=== PATIENT | male | born 1975 | race Two or more races ===

== ENCOUNTER 2024-05-12 06:26 | Inpatient (IN) | payer OTHER ==
[~2024-05-12] VITALS: Ht 185.4 cm; Wt 81.0 kg
[2024-05-12 07:40] LABS: Basophils # (auto) 0.1 10 ^3/uL (0-0.2); Eosinophils # (auto) 0.1 10 ^3/uL (0-0.8); Eosinophils % (auto) 2.1 % (0.0-7.0); Hematocrit 25.4 % (41.0-53.0); Hemoglobin 8.5 g/dL (13.5-17.5); Lymphocytes # (auto) 1.2 10 ^3/uL (0.4-5.4); Lymphocytes % (auto) 18.9 % (10.0-50.0); Mean Corpuscular Hemoglobin 32.4 pg (28.0-32.0); Mean Corpuscular Hgb Conc. 33.4 g/dL (32.0-36.0); Mean Corpuscular Volume 96.9 fL (80.0-100.0); Monocytes # (auto) 0.5 10 ^3/uL (0-1.3); Monocytes % (auto) 7.2 % (0.0-12.0); Neutrophils # (auto) 4.6 10 ^3/uL (1.6-8.6); Neutrophils % (auto) 70.8 % (37.0-80.0); Red Blood Cells 2.62 10^6/uL (4.5-5.90); Red Cell Distribution Width 12.8 % (11.8-14.3); White Blood Cell 6.5 10^3/uL (4.4-10.8)
[2024-05-12 07:45] VITALS: PULSE 64; RESP 12; O2SAT 100
[2024-05-12 08:04] LABS: Alanine Aminotransferase 10 U/L (7-40); Albumin 4.4 g/dL (3.2-4.8); Alkaline Phosphatase 51 U/L (46-116); Anion Gap 16 (5-15); Aspartate Aminotransferase < 8 U/L (13-40); Calcium 8.7 mg/dL (8.5-10.1); Carbon Dioxide 15 mmol/L (20-30); Chloride 108 mmol/L (98-107); Glucose 109 mg/dL (74-106); Potassium 3.5 mmol/L (3.5-5.1); Sodium 139 mmol/L (136-145)
[2024-05-12 08:05] LABS: Bilirubin, Total 0.3 mg/dL (0.2-1.0); Total Protein 6.9 g/dL (5.7-8.2)
[2024-05-12 08:12] LABS: BUN/Creatinine Ratio 13.4 (10.0-20.0)
[2024-05-12 08:15] LABS: Blood Urea Nitrogen 160 mg/dL (9-23)
[2024-05-12 08:38] LABS: Lipase 140 U/L (12-53)
[2024-05-12] MEDS: SODIUM CHLORIDE 0.9% 1,000 ML IV ONE ×3 (09:00→10:45)
[2024-05-12 09:44] LABS: Magnesium 1.9 mg/dL (1.6-2.6)
[2024-05-12 09:46] LABS: Phosphorus 9.9 mg/dL (2.4-5.1)
[2024-05-12] MEDS ORDERED: NITROGLYCERIN 0.4 MG SL TAB SL PRN (10:00)
[2024-05-12] MEDS ORDERED: MORPHINE SULFATE INJ 2 MG/ml SYRG IV PRN (10:00)
[2024-05-12 10:19] LABS: INR 1.05 (0.9-1.15); Prothrombin Time 11.1 sec (9.3-11.8)
[2024-05-12] MEDS: SODIUM BICARB 50mEq/50ml Vial 50 ML in SOD CHL 0.45% 1,000 ML IV SCH (10:45)
[2024-05-12 11:38] LABS: Urine Bacteria FEW /hpf (None Seen); Urine Blood Negative /uL (Negative); Urine Clarity Clear (Clear); Urine Color Colorless (Yellow); Urine Protein, UAD Negative (Negative); Urine Specific Gravity 1.008 (1.001-1.035); Urine Urobilinogen Normal (Negative); Urine WBC 31 /hpf (0 - 3)
[2024-05-12 11:39] LABS: Protein, Urine 12.4 mg/dL (0.0-11.9)
[2024-05-12 11:42] LABS: Creatinine, Urine 38.8 mg/dL (30.0-125.0)
[2024-05-12 13:53] LABS: COVID19 ANTIGEN SOFIA FIA NEGATIVE (NEGATIVE); Rapid Influenza A Negative (Negative); Rapid Influenza B Negative (Negative)
[2024-05-12 16:55] VITALS: BP 119/73; PULSE 64; RESP 17; TEMP 97.9; O2SAT 100
[2024-05-12 17:27] VITALS: BP 121/74; PULSE 67; RESP 17; TEMP 97.9; O2SAT 99
[2024-05-12] MEDS: cefTRIAXone 1GM/50ML D5W 50 ML IV SCH (18:43)
[2024-05-12 20:00] VITALS: PULSE 70; RESP 17; O2SAT 97
[2024-05-12 21:00] VITALS: BP 115/67; PULSE 70; RESP 17; TEMP 97.7; O2SAT 97
[2024-05-13] VITALS (8 sets, daily range): BP systolic 104–143; BP diastolic 53–71; PULSE 58–75; RESP 17–19; TEMP 97.2–98.2; O2SAT 96–100
[2024-05-13 06:56] LABS: Anion Gap 15 (5-15); Carbon Dioxide 17 mmol/L (20-30); Chloride 109 mmol/L (98-107); Potassium 3.9 mmol/L (3.5-5.1); Sodium 141 mmol/L (136-145)
[2024-05-13 06:57] LABS: Calcium 8.7 mg/dL (8.7-10.4)
[2024-05-13 07:02] LABS: Basophils # (auto) 0.1 10 ^3/uL (0-0.2); Eosinophils # (auto) 0.3 10 ^3/uL (0-0.8); Glucose 101 mg/dL (74-106); Hemoglobin 8.2 g/dL (13.5-17.5); Neutrophils # (auto) 4.3 10 ^3/uL (1.6-8.6); White Blood Cell 6.8 10^3/uL (4.4-10.8)
[2024-05-13 07:04] LABS: Basophils % (auto) 1.1 % (0.0-2.0); Hematocrit 23.7 % (41.0-53.0); Lymphocytes # (auto) 1.6 10 ^3/uL (0.4-5.4); Lymphocytes % (auto) 22.8 % (10.0-50.0); Mean Corpuscular Hemoglobin 33.3 pg (28.0-32.0); Mean Corpuscular Hgb Conc. 34.7 g/dL (32.0-36.0); Monocytes # (auto) 0.6 10 ^3/uL (0-1.3); Monocytes % (auto) 8.6 % (0.0-12.0); Neutrophils % (auto) 63.5 % (37.0-80.0); Red Blood Cells 2.47 10^6/uL (4.5-5.90); Red Cell Distribution Width 12.7 % (11.8-14.3)
[2024-05-13 07:11] LABS: BUN/Creatinine Ratio 12.8 (10.0-20.0)
[2024-05-13 07:34] LABS: Blood Urea Nitrogen 153 mg/dL (9-23)
[2024-05-13 14:20] LABS: Hepatitis C Antibody Negative (Negative)
[2024-05-13] MEDS: SODIUM BICARB 50mEq/50ml Vial 75 ML in SOD CHL 0.45% 1,000 ML IV SCH (21:00)
[2024-05-14] VITALS (7 sets, daily range): BP systolic 114–125; BP diastolic 69–77; PULSE 63–88; RESP 17–18; TEMP 97.5–98.1; O2SAT 96–99
[2024-05-14 03:40] LABS: Hepatitis B Surface Antigen Negative (Negative)
[2024-05-14 06:54] LABS: Anion Gap 20 (5-15); Carbon Dioxide 14 mmol/L (20-30); Chloride 107 mmol/L (98-107); Potassium 3.7 mmol/L (3.5-5.1); Sodium 141 mmol/L (136-145)
[2024-05-14 06:56] LABS: Calcium 8.7 mg/dL (8.7-10.4)
[2024-05-14 07:00] LABS: BUN/Creatinine Ratio 12.9 (10.0-20.0); Glucose 97 mg/dL (74-106)
[2024-05-14 07:07] LABS: Blood Urea Nitrogen 144 mg/dL (9-23)
[2024-05-14 08:06] LABS: Complement C3 81 mg/dL (82-167)
[2024-05-14] MEDS: fentaNYL CITRATE 100 MCG/2 ML VL IV ONE (09:00)
[2024-05-14] MEDS: MIDAZOLAM HCL 2MG/2ML 2ml VIAL (1mg/ml) IV ONE (09:00)
[2024-05-14 11:06] LABS: Anti-Nuclear Antibody Direct Negative (Negative)
[2024-05-14] MEDS: SODIUM BICARB 50mEq/50ml Vial 150 ML in D5W 5% 1,000 ML IV SCH (13:16)
[2024-05-15] VITALS (11 sets, daily range): BP systolic 112–132; BP diastolic 69–79; PULSE 61–76; RESP 14–20; TEMP 97.3–98.4; O2SAT 98–100
[2024-05-15 07:01] LABS: Chloride 105 mmol/L (98-107); Potassium 3.7 mmol/L (3.5-5.1); Sodium 143 mmol/L (136-145)
[2024-05-15 07:02] LABS: Anion Gap 14 (5-15); Calcium 8.8 mg/dL (8.5-10.1); Carbon Dioxide 24 mmol/L (20-30)
[2024-05-15 07:07] LABS: Glucose 97 mg/dL (74-106)
[2024-05-15 07:16] LABS: BUN/Creatinine Ratio 13.6 (10.0-20.0)
[2024-05-15 08:00] LABS: Blood Urea Nitrogen 149 mg/dL (9-23)
[2024-05-15 09:07] LABS: CMV IgG Antibody <0.60 U/mL (0.00-0.59)
[2024-05-15] MEDS: LACTATED RINGER'S 1,000 ML IV SCH (10:10)
[2024-05-15] MEDS: HEPARIN SODIUM (PORCINE) 5000 UNITS/ML 1ML VIAL ONE (13:46)
[2024-05-15] MEDS: fentaNYL CITRATE 100 MCG/2 ML VL ONE (13:46)
[2024-05-15] MEDS: MIDAZOLAM HCL 2MG/2ML 2ml VIAL (1mg/ml) ONE (13:47)
[2024-05-15] MEDS: LIDOCAINE 2%HCL (LOCAL ANESTH.) INJ 20ML MDV ONE (13:47)
[2024-05-15 14:07] LABS: Anti-Centromere B Antibody <0.2 AI (0.0-0.9); Anti-Jo-1 Antibody <0.2 AI (0.0-0.9); Anti-dsDNA Antibody <1 IU/mL (0-9); Antichromatin Antibody <0.2 AI (0.0-0.9); Antiscleroderma-70 Antibody <0.2 AI (0.0-0.9); RNP Antibody <0.2 AI (0.0-0.9); Sjogren's Anti-SS-A Antibody <0.2 AI (0.0-0.9); Sjogren's Anti-SS-B Antibody <0.2 AI (0.0-0.9); Smith Antibody <0.2 AI (0.0-0.9)
[2024-05-15 16:06] LABS: Antimyeloperoxidase (MPO) Ab <0.2 units (0.0-0.9); Antiproteinase 3 (PR-3) Ab <0.2 units (0.0-0.9)
[2024-05-16 05:00] VITALS: BP 112/73; PULSE 77; RESP 17; TEMP 98.3; O2SAT 97
[2024-05-16 06:17] LABS: Anion Gap 14 (5-15); Carbon Dioxide 24 mmol/L (20-30); Chloride 105 mmol/L (98-107); Potassium 3.8 mmol/L (3.5-5.1); Sodium 143 mmol/L (136-145)
[2024-05-16 06:18] LABS: Calcium 8.7 mg/dL (8.7-10.4)
[2024-05-16 06:23] LABS: BUN/Creatinine Ratio 12.9 (10.0-20.0); Glucose 102 mg/dL (74-106)
[2024-05-16 06:25] LABS: % Iron Saturation 61.5 % (20-55)
[2024-05-16 06:28] LABS: Blood Urea Nitrogen 136 mg/dL (9-23)
[2024-05-16] MEDS: SODIUM CHL 0.9% 1000 ML BAG XX ONE (07:00)
[2024-05-16 08:30] VITALS: BP 121/78; PULSE 70; RESP 17; TEMP 97.8; O2SAT 98
[2024-05-16 10:07] LABS: CMV IgM Antibody <30.0 AU/mL (0.0-29.9)
[2024-05-16 12:12] VITALS: BP 116/72; PULSE 69; RESP 16; TEMP 98.7; O2SAT 97
[2024-05-16 17:09] VITALS: BP 119/67; PULSE 68; RESP 16; TEMP 98.1
[2024-05-16] MEDS: CALCIUM ACETATE 667 MG CAP PO SCH (18:23)
[2024-05-16 20:00] VITALS: PULSE 75; RESP 17; O2SAT 96
[2024-05-16 21:00] VITALS: BP 113/72; PULSE 76; RESP 17; TEMP 99.5; O2SAT 96
[2024-05-16] MEDS: EPOETIN ALFA-EPBX 4,000 UNIT/ML VIAL SC ONE (21:37)
[2024-05-17 05:00] VITALS: BP 118/70; PULSE 69; RESP 18; TEMP 98.5; O2SAT 98
[2024-05-17 05:56] LABS: Calcium 8.7 mg/dL (8.7-10.4); Chloride 103 mmol/L (98-107); Potassium 3.8 mmol/L (3.5-5.1); Sodium 141 mmol/L (136-145)
[2024-05-17 05:57] LABS: Anion Gap 12 (5-15); Carbon Dioxide 26 mmol/L (20-30)
[2024-05-17 06:02] LABS: BUN/Creatinine Ratio 12.2 (10.0-20.0); Glucose 91 mg/dL (74-106)
[2024-05-17 06:06] LABS: Blood Urea Nitrogen 92 mg/dL (9-23)
[2024-05-17 09:00] VITALS: BP 128/75; PULSE 92; RESP 18; TEMP 98.1; O2SAT 98
[2024-05-17 13:00] VITALS: BP 112/63; PULSE 67; RESP 18; TEMP 98; O2SAT 98
[2024-05-17] MEDS ORDERED: FER325T PO (13:49)
[2024-05-17] MEDS ORDERED: DOCU-94 PO (13:49)
[2024-05-17] MEDS ORDERED: CALC10TA PO (13:50)
[2024-05-17 15:07] LABS: Cytoplasmic (C-ANCA) <1:20 titer (Neg:<1:20); Perinuclear (P-ANCA) <1:20 titer (Neg:<1:20)
[2024-05-17 16:59] VITALS: BP 98/53; PULSE 82; RESP 18; TEMP 98.8; O2SAT 97
[2024-05-17] MEDS: IRON SUCROSE COMPLEX 100 ML IV SCH (17:00)
== END 2024-05-17 18:00 | disposition home or self-care (01) | DRG 673 ==
LOC: ER 06:26 → OVERFLOW 10:53 → CENTRAL 13:48
PROVIDERS: ADMIT Internal Medicine; ATTEND Student in an Organized Health Care Education/Training Program
PROC: 0JH63XZ Insertion of Tunneled Vascular Access Device into Chest Subcutaneous Tissue and Fascia, Percutaneous Approach (ICD-10-PCS; principal; 2024-05-15)
PROC: 02H633Z Insertion of Infusion Device into Right Atrium, Percutaneous Approach (ICD-10-PCS; 2024-05-15)
PROC: B518ZZA Fluoroscopy of Superior Vena Cava, Guidance (ICD-10-PCS; 2024-05-15)
PROC: B548ZZA Ultrasonography of Superior Vena Cava, Guidance (ICD-10-PCS; 2024-05-15)
PROC: 5A1D70Z Performance of Urinary Filtration, Intermittent, Less than 6 Hours Per Day (ICD-10-PCS; 2024-05-16)
DX: N17.9 Acute kidney failure, unspecified (principal); K85.90 Acute pancreatitis without necrosis or infection, unspecified; E87.20 Acidosis, unspecified; N39.0 Urinary tract infection, site not specified; I12.0 Hypertensive chronic kidney disease with stage 5 chronic kidney disease or end stage renal disease; D64.9 Anemia, unspecified; N29 Other disorders of kidney and ureter in diseases classified elsewhere; R73.03 Prediabetes; Z20.822 Contact with and (suspected) exposure to COVID-19; B34.9 Viral infection, unspecified; E83.59 Other disorders of calcium metabolism; E66.01 Morbid (severe) obesity due to excess calories; N18.6 End stage renal disease; Z88.1 Allergy status to other antibiotic agents; Z79.899 Other long term (current) drug therapy; Z87.442 Personal history of urinary calculi; Z86.73 Personal history of transient ischemic attack (TIA), and cerebral infarction without residual deficits; Z82.0 Family history of epilepsy and other diseases of the nervous system; Z82.49 Family history of ischemic heart disease and other diseases of the circulatory system; Z68.23 Body mass index [BMI] 23.0-23.9, adult; Z99.2 Dependence on renal dialysis
CPT/HCPCS: 36415; 36558; 76775; 76942; 77001; 80048; 80053; 81001; 82306; 82570; 83036; 83516; 83520; 83540; 83550; 83690; 83735; 83880; 83935; 84100; 84156; 84300; 85018; 85025; 85610; 86038; 86160; 86225; 86235; 86256; 86644; 86645; 86703; 86803; 87086; 87340; 87426; 87804; 90935; 99152; C1894; G0378; J2250